=== PATIENT | female | born 1955 | race Caucasian/White ===

== ENCOUNTER 2025-01-24 14:17 | Outpatient (CLI) | payer MEDICARE, BC ==
[~2025-01-24 14:17] MED LIST: ACET-1008 PO; NO HOME MEDS
--- NOTE | 2025-01-24 16:05 | RADIOLOGY REPORT ---
CLINICAL INFORMATION: Right hip pain. TECHNIQUE: Multisequence multiplanar MRI images of the right hip were obtained without contrast. COMPARISON: None FINDINGS: BONES: No acute fracture or osteonecrosis. JOINT: Severe joint space narrowing of the right hip with associated subchondral cystic change and subchondral sclerosis. There is tear at the anterior superior labrum and fraying of the superior labrum. Moderate joint effusion in the right hip. BURSAE: Mild edema and small amount of fluid in the right hip trochanteric bursa. TENDONS: [id number] tendinosis of the distal gluteus medius and minimus tendons. Origins of the rectus femoris tendon and hamstring tendons are intact. Distal insertion of the iliopsoas tendon is intact. MUSCLES: Moderate fatty atrophy of the bilateral gluteus minimus muscles. OTHER: No other significant findings. IMPRESSION: 1. Tear at the anterior superior labrum of the right hip with fraying of the superior labrum. 2. Severe joint space narrowing of the right hip with associated subchondral cystic change and subchondral sclerosis. 3. Moderate joint effusion. 4. Additional findings as described above.
--- NOTE | 2025-01-24 16:08 | RADIOLOGY REPORT ---
CLINICAL HISTORY: Right hip pain. TECHNIQUE: Multi sequence multi planar MRI images of the pelvis were obtained without contrast. COMPARISON: Correlation made to same day dedicated MRI of the right hip. FINDINGS: Motion limited study. No acute fracture or osteonecrosis. Severe arthritic changes in the right hip with severe joint space narrowing, subchondral sclerosis, subchondral edema, and subchondral cystic change. Moderate arthritic changes in the left hip with moderate joint space narrowing and mild subchondral sclerosis. Moderate joint effusion in the right hip. Small joint effusion in the left hip. There is mild edema and small amount of fluid in the trochanteric bursae bilaterally. [id number] tendinosis of the distal gluteus medius and minimus tendons bilaterally without evidence of tear. Hamstring tendon origins are intact. Rectus femoris tendon origins and sartorius tendon origins are intact. Distal iliopsoas tendons are intact. Moderate fatty atrophy of the gluteus minimus muscles bilaterally. No findings are seen to suggest muscle strain or tear. IMPRESSION: 1. Motion limited study. 2. 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 3. Bilateral trochanteric bursitis. 4. Additional findings as described above. 5. For additional findings regarding the right hip, refer to the separately dictated same day MRI right hip Exam report.
== END 2025-01-24 23:59 | disposition home or self-care (01) ==
LOC: MRI02 14:17
PROVIDERS: ATTEND Family Medicine
DX: S73.191A Other sprain of right hip, initial encounter (principal); M25.551 Pain in right hip; M25.451 Effusion, right hip; X58.XXXA Exposure to other specified factors, initial encounter; Y93.89 Activity, other specified; Y92.89 Other specified places as the place of occurrence of the external cause; Y99.8 Other external cause status
CPT/HCPCS: 72195; 73721